=== PATIENT | male | born 1965 | race Caucasian/White ===

== ENCOUNTER 2018-09-21 06:04 | Inpatient (IN) | payer MEDICARE, MEDICAID ==
[2018-09-18 10:14] LABS: Urine WBC None Seen /hpf (0 - 3)
[2018-09-18 10:22] LABS: Basophils # (auto) 0 uL; Basophils % (auto) 0.5 % (0.0-2.0); Eosinophils # (auto) 0.1 uL; Eosinophils % (auto) 1.9 % (0.0-7.0); Lymphocytes # (auto) 2.3 uL; Lymphocytes % (auto) 51.4 % (10.0-50.0); Mean Corpuscular Hemoglobin 30.1 pg (28.0-32.0); Mean Corpuscular Hgb Conc. 33.3 g/dL (32.0-36.0); Mean Corpuscular Volume 90.4 fL (80.0-100.0); Monocytes # (auto) 0.2 uL; Monocytes % (auto) 5.3 % (0.0-12.0); Neutrophils # (auto) 1.9 uL; Neutrophils % (auto) 40.9 % (37.0-80.0); Nucleated Red Blood Cells % 0.1 %; Platelet Count (auto) 227 10^3/uL (140-450); Red Blood Cells 4.65 10^6/uL (4.5-5.90); Red Cell Distribution Width 14.2 % (11.8-14.3); White Blood Cell 4.5 10^3/uL (4.4-10.8)
[2018-09-18 10:25] LABS: Urine Bacteria NONE SEEN /hpf (None Seen); Urine Blood Negative /uL (Negative); Urine Specific Gravity 1.005 (1.001-1.035)
[2018-09-18 10:39] LABS: INR 0.95 (0.9-1.15); Partial Thromboplastin Time 25.7 sec (23.64-32.05)
[2018-09-18 11:09] LABS: Calcium 9.2 mg/dL (8.5-10.1); Potassium 4.7 mmol/L (3.5-5.1)
[2018-09-18 11:14] LABS: Albumin 3.9 g/dL (3.4-5.0); Bilirubin, Total 0.4 mg/dL (0.2-1.0); Total Protein 7.7 g/dL (6.4-8.2)
[~2018-09-21] VITALS: Ht 177.8 cm; Wt 121.5 kg
[~2018-09-21 06:04] MED LIST: AMIT50TA3 PO; CARV3.1240 PO; FENO5TAB PO; GABA100C9 PO; IBUP800T24 PO; LISI40TA PO; METF-372 PO; OXY20CRT PO; OXYC-629 PO; PRAV20TA3 PO; SERT-160 PO
[2018-09-21] MEDS ORDERED: TRANEXAMIC ACID 10 ML ONE (07:16)
[2018-09-21] MEDS ORDERED: BUPIVACAINE W/ EPINEPH 0.25% INJ 50ML MDV ONE (07:16)
[2018-09-21] MEDS ORDERED: ceFAZolin 1GM VL ONE (07:16)
[2018-09-21] MEDS ORDERED: ceFAZolin 1GM/50ML 100 ML IV ONE (07:19)
[2018-09-21] MEDS ORDERED: KETOROLAC TROMETH 60MG/2ML VIAL ONE (07:20)
[2018-09-21] MEDS ORDERED: VANCOMYCIN HCL 1000 MG VL ONE (07:20)
[2018-09-21] MEDS ORDERED: MORPHINE SULF(PF) 0.5MG/ML 10ML VIAL ONE (07:27)
[2018-09-21] MEDS ORDERED: fentaNYL CITRATE 100 MCG/2 ML VL ONE ×4 (07:28→12:27)
[2018-09-21] MEDS ORDERED: MIDAZOLAM HCL 1MG/1ML-2 ML VIAL ONE (07:28)
[2018-09-21] MEDS ORDERED: PROPOFOL 10 MG/ML 20 ML IV ONE (07:29)
[2018-09-21] MEDS ORDERED: SUCCINYLCHOLINE CHLORIDE 20 MG/ML 10ML VIAL IV ONE (07:48)
[2018-09-21] MEDS ORDERED: GLYCOPYRROLATE 0.2 MG/ML 1ML VIAL IV ONE (08:02)
[2018-09-21] MEDS ORDERED: HYDROmorphone HCL 2 MG/ML VL ONE ×2 (08:44→12:49)
[2018-09-21] MEDS ORDERED: ROCURONIUM 10MG/ML 10ML VIAL IV ONE (09:07)
[2018-09-21] MEDS: SERTRALINE HCL 50 MG TAB PO SCH (10:00)
[2018-09-21] MEDS: LISINOPRIL 20 MG TAB PO SCH (10:00)
[2018-09-21] MEDS: LACTATED RINGER'S 1,000 ML IV SCH ×2 (11:57→21:57)
[2018-09-21] MEDS ORDERED: ONDANSETRON HCL 4 MG/2 ML VIAL IV PRN (12:00)
[2018-09-21] MEDS ORDERED: MORPHINE SULF INJ 2 MG/ML SYRINGE 1ML IV PRN (12:00)
[2018-09-21] MEDS ORDERED: NITROGLYCERIN 0.4 MG SL TAB SL PRN (12:00)
[2018-09-21] MEDS ORDERED: BISACODYL 5 MG EC TAB PO PRN (12:00)
[2018-09-21] MEDS ORDERED: DEXTROSE (50%) 50ML SYRG IV PRN (12:15)
[2018-09-21] MEDS ORDERED: fentaNYL CITRATE 100 MCG/2 ML VL IM ONE (12:50)
[2018-09-21] MEDS ORDERED: ONDANSETRON HCL 4 MG/2 ML VIAL IM ONE (12:50)
[2018-09-21] MEDS: HYDROmorphone HCL 2 MG/ML VL IV PRN ×6 (12:51→23:15)
[2018-09-21] MEDS ORDERED: fentaNYL CITRATE 100 MCG/2 ML VL IV PRN (13:45)
--- NOTE | 2018-09-21 14:32 | NUR ---
MS admit from OR ROBIN HERBERT admitted to tele/MS after SBAR received. Patient oriented to Mady Bailey, primary RN, unit, room, bed, and unit policies regarding patient care and visiting hours. Patient weighed by bedscale and encouraged to call if they need something. All questions and concerns addressed, patient verbalized understanding. Note:
[2018-09-21] MEDS ORDERED: ACETAMINOPHEN IV 100 ML IV ONE (14:44)
[2018-09-21] MEDS ORDERED: ACETAMINOPHEN IV 1000 MG/100ML (10MG/ML) IV ONE (14:52)
[2018-09-21] MEDS: OXYCODONE W/ ACETAMINOPHEN 5/325MG TABLET PO PRN (15:49)
[2018-09-21 16:00] VITALS: BP 150/72
[2018-09-21] MEDS: SODIUM CHLOR 0.9% PF (SALINE LOCK) 10ML VIAL/SYR IV SCH ×2 (16:43→22:18)
[2018-09-21] MEDS: ceFAZolin 1GM 2 GM in D5W 5% 100 ML IV SCH ×2 (16:50→22:24)
[2018-09-21] MEDS: GABAPENTIN 100 MG CAP PO SCH ×2 (16:50→22:19)
[2018-09-21 17:00] VITALS: BP 135/69
[2018-09-21] MEDS: InsuLIN REG 1unit/0.01ml Soln (100units/ml) SC SCH ×2 (17:20→22:20)
[2018-09-21] MEDS: ACCU-CHEK COMFORT CURVE STRIP VI SCH ×2 (17:21→21:28)
[2018-09-21] MEDS: AMITRIPTYLINE HCL 25 MG TAB PO SCH (17:21)
[2018-09-21] MEDS: metFORMIN HYDROCHLORIDE 500 MG TAB PO SCH (17:21)
--- NOTE | 2018-09-21 19:57 | NUR ---
Opening Note Assumed pt car from day shift nurse. Pt is a/ox4 with no s/s of distress or SOB. PT is currently laying in bed with the CPM machine on stating he does have mild pain, 5/10. Left leg is supported with CMP and still has current dressing on. Discussed the available pain medication, pt verbalized understanding. Discussed POC with pt,. pt verbalized understanding. Safety measures maintained with side rails up, bed in lowest position and call light within reach. Will continue to monitor for changes q1hr and prn.
[2018-09-21 22:00] VITALS: BP 121/62
[2018-09-21] MEDS ORDERED: oxyCODONE ER 10 MG TAB PO SCH (22:00)
[2018-09-21] MEDS: DOCUSATE SOD 100 MG CAP PO SCH (22:18)
[2018-09-21] MEDS: CARVEDILOL 3.125 MG TAB PO SCH (22:19)
[2018-09-21] MEDS: oxyCODONE ER 20 MG TAB PO SCH (22:20)
--- NOTE | 2018-09-22 00:04 | NUR ---
Pt Pain Pt reports pain 10/10 despite oxycotin as well as dilaudid administration. Provided education regarding the time it takes for the medication to work. Provided no pharm techniques such as repositioning and hot packs to back. Pt states that he is still in pain.
[2018-09-22] MEDS: HYDROmorphone HCL 2 MG/ML VL IV PRN ×9 (02:17→22:35)
[2018-09-22] MEDS: OXYCODONE W/ ACETAMINOPHEN 5/325MG TABLET PO PRN ×5 (03:10→23:15)
[2018-09-22 03:15] VITALS: BP 121/62
[2018-09-22 05:00] VITALS: BP 123/60
--- NOTE | 2018-09-22 05:10 | NUR ---
Slightly Elevated Temperature CLINICAL TRAINING COORDINATOR reported in 0500 vitals that the pt's temp is 100.0 F. At this time the pt is asymptomatic. Will continue to monitor for changes and reassess.
[2018-09-22] MEDS: GABAPENTIN 100 MG CAP PO SCH ×3 (06:30→21:36)
[2018-09-22] MEDS: SODIUM CHLOR 0.9% PF (SALINE LOCK) 10ML VIAL/SYR IV SCH ×3 (06:30→21:35)
[2018-09-22] MEDS: ACCU-CHEK COMFORT CURVE STRIP VI SCH ×4 (06:30→20:31)
[2018-09-22] MEDS: ceFAZolin 1GM 2 GM in D5W 5% 100 ML IV SCH (06:30)
[2018-09-22 06:40] LABS: Hemoglobin 11.2 g/dL (13.5-17.5)
[2018-09-22] MEDS: metFORMIN HYDROCHLORIDE 500 MG TAB PO SCH ×2 (06:41→18:00)
[2018-09-22] MEDS: InsuLIN REG 1unit/0.01ml Soln (100units/ml) SC SCH ×4 (06:42→21:37)
[2018-09-22 06:55] LABS: Albumin 3.1 g/dL (3.4-5.0); BUN/Creatinine Ratio 15.6; Calcium 8.3 mg/dL (8.5-10.1); Potassium 3.9 mmol/L (3.5-5.1)
[2018-09-22 06:57] LABS: Bilirubin, Total 0.8 mg/dL (0.2-1.0); Total Protein 6.2 g/dL (6.4-8.2)
--- NOTE | 2018-09-22 07:50 | NUR ---
FOUND PT ON RA WITH OXYGEN SATURATION OF 88%. PT WAS PLACED BACK ON OXYGEN 2L/VIA NC, OXYGEN SATURATION WENT UP TP 95%. HR 89BPM, RR20. BS ARE CLEAR TO AUSCULTATION. NO SOB OR ANY OTHER RESPIRATORY DISTRESS NOTED. PT WAS INFORMED ABOUT CPAP ORDER TO USE AT NIGHT. PT STATED HE "WILL NOT USE IT." HE SAYS HE DOES HAVE A CPAP AT HOME AND THAT HE "CANNOT USE IT." PT STATES SOMEONE EXPLAINED TO HIM ABOUT CPAP, LAST NIGHT. PT IS REFUSING CPAP.
[2018-09-22] MEDS: LACTATED RINGER'S 1,000 ML IV SCH ×2 (07:57→17:31)
[2018-09-22 09:00] VITALS: BP 137/65
[2018-09-22] MEDS: PRAVASTATIN SODIUM 20 MG TAB PO SCH (09:14)
[2018-09-22] MEDS: DOCUSATE SOD 100 MG CAP PO SCH ×2 (09:18→21:36)
[2018-09-22] MEDS: CARVEDILOL 3.125 MG TAB PO SCH ×2 (09:20→21:36)
[2018-09-22] MEDS: oxyCODONE ER 20 MG TAB PO SCH (09:21)
[2018-09-22] MEDS: LISINOPRIL 20 MG TAB PO SCH (09:22)
[2018-09-22] MEDS: SERTRALINE HCL 50 MG TAB PO SCH (09:23)
[2018-09-22] MEDS: ENOXAPARIN SOD 40 MG/0.4 ML SYRINGE SC SCH (09:25)
[2018-09-22] MEDS ORDERED: PANTOPRAZOLE 40 MG TAB PO ONE (11:00)
[2018-09-22] MEDS: PANTOPRAZOLE 40 MG TAB PO SCH ×2 (11:12→21:37)
[2018-09-22 13:00] VITALS: BP 140/69
[2018-09-22] MEDS ORDERED: LACTULOSE 20Gm/30ML SOLN PO PRN (14:15)
--- NOTE | 2018-09-22 16:00 | NUR ---
PT REFUSED P.T. X 2.
[2018-09-22 17:00] VITALS: BP 123/67
[2018-09-22] MEDS: AMITRIPTYLINE HCL 25 MG TAB PO SCH (17:29)
--- NOTE | 2018-09-22 19:39 | NUR ---
Opening Note Assumed pt care from day shift nurse. Pt is a/ox4 with no s/s of distress. Pt is currently laying in bed with c/o pain 9/10 located to left knee. Discussed available pain medications; pt verbalized understanding. Discussed POC with pt, pt verbalized understanding. Dressing to L knee is still intact, pedal pulses are strong and regular bilaterally. Safety measures maintained with call light within reach, bed in lowest position and side rails up. Will continue to monitor for changes q1hr and prn.
[2018-09-22] MEDS: oxyCODONE ER 10 MG TAB PO SCH (21:37)
[2018-09-22] MEDS: MORPHINE SULF 30 mg ER tab PO SCH (21:37)
[2018-09-22 22:00] VITALS: BP 134/62
[2018-09-22] MEDS ORDERED: MORPHINE SULF 15mg ER tab PO SCH (22:00)
[2018-09-23] MEDS: HYDROmorphone HCL 2 MG/ML VL IV PRN ×4 (00:35→06:31)
[2018-09-23] MEDS: LACTATED RINGER'S 1,000 ML IV SCH ×3 (02:58→23:57)
[2018-09-23] MEDS: OXYCODONE W/ ACETAMINOPHEN 5/325MG TABLET PO PRN ×3 (04:34→17:35)
[2018-09-23 05:00] VITALS: BP 122/55
--- NOTE | 2018-09-23 05:41 | NUR ---
Pain Update Pt reports 10/10 pain located in L knee despite administration of pain medication as well as break through pain medication. L pedal pulse is strong and regular, no additional swelling noted. Offered non-pharm techniques and distraction techniques; no relief with implementing.
[2018-09-23] MEDS: GABAPENTIN 100 MG CAP PO SCH ×3 (05:49→22:37)
[2018-09-23] MEDS: SODIUM CHLOR 0.9% PF (SALINE LOCK) 10ML VIAL/SYR IV SCH ×3 (05:49→22:00)
[2018-09-23] MEDS: InsuLIN REG 1unit/0.01ml Soln (100units/ml) SC SCH ×4 (06:27→22:00)
[2018-09-23] MEDS: ACCU-CHEK COMFORT CURVE STRIP VI SCH ×4 (06:27→22:00)
[2018-09-23] MEDS: metFORMIN HYDROCHLORIDE 500 MG TAB PO SCH ×2 (06:31→17:34)
--- NOTE | 2018-09-23 06:40 | NUR ---
DR Tong at Bedside
[2018-09-23 07:03] LABS: Hematocrit 28.2 % (41.0-53.0); Hemoglobin 9.7 g/dL (13.5-17.5)
[2018-09-23 08:00] VITALS: BP 111/56
--- NOTE | 2018-09-23 08:20 | NUR ---
PT RESTING IN BED, PT REPORTS 8/10 PAIN IN LEFT LEG. LEFT KNEE EDEMA NOTED, PLUS 2 NON PITTING. NO ERYTHEMA NOTED, MINIMAL DRAINAGE NOTED ON LEFT KNEE BANDAGE. BANDAGE CLEAN DRY AND INTACT. PEDAL PULSES PLUS 3 BILATERALLY. APPROX 350 MLS CLEAR DILSHAD URINE NOTED IN URINAL, WILL CONTINUE TO MONITOR. PT ENCOURAGED TO USE CALL LIGHT PRN. PT REFUSING CPM AT THIS TIME, BUT REPORTS HE WILL USE IT "LATER."
[2018-09-23] MEDS: LISINOPRIL 20 MG TAB PO SCH (09:52)
[2018-09-23] MEDS: CARVEDILOL 3.125 MG TAB PO SCH ×2 (09:52→22:38)
[2018-09-23] MEDS: PRAVASTATIN SODIUM 20 MG TAB PO SCH (09:53)
[2018-09-23] MEDS: DOCUSATE SOD 100 MG CAP PO SCH ×2 (09:53→22:36)
[2018-09-23] MEDS: SERTRALINE HCL 50 MG TAB PO SCH (09:54)
[2018-09-23] MEDS: MORPHINE SULF 30 mg ER tab PO SCH ×2 (09:54→22:37)
[2018-09-23] MEDS: oxyCODONE ER 10 MG TAB PO SCH (09:54)
[2018-09-23] MEDS: PANTOPRAZOLE 40 MG TAB PO SCH ×2 (09:55→22:37)
[2018-09-23] MEDS: ENOXAPARIN SOD 40 MG/0.4 ML SYRINGE SC SCH (09:55)
--- NOTE | 2018-09-23 10:49 | NUR ---
PT REPORTS HE IS STILL IN 8/10 PAIN IN KNEE. SCHEDULED ORAMORPH AND OXYCONTIN ALREADY GIVEN. OFFERED PT ICE PACK, PT REFUSED. CPM FOR HOME DELIVERED TO PT BEDSIDE.
[2018-09-23 12:00] VITALS: BP 122/57
--- NOTE | 2018-09-23 12:15 | NUR ---
PT REPORTS HE IS STILL IN 09/26 PAIN. OFFERED PATIENT TO ELEVATE KNEE ON PILLOWS, PT REFUSED. CALLED AND LEFT MESSAGE WITH DR CARRASCO'S ANSWERING SERVICE, AWAITING CALL BACK. Addendum: 09/23/18 at 1219 by ELVIS MANCILLA RN PT ALREADY GIVEN ORAMORPH AND OXYCONTIN, WANT TO CLARIFY WITH MD MCGOWAN TO GIVE DILAUDID Q 2 HRS.
--- NOTE | 2018-09-23 13:25 | NUR ---
GAVE PATIENT PRN CATHI, PT REPORTS, "IT PROBABLY WON'T WORK!" CALLED DR CARRASCO AGAIN, AND LEFT MESSAGE WITH TICKET CHOPPER ASSEMBLER.
--- NOTE | 2018-09-23 14:10 | NUR ---
ASKED FRAMING SPECIALIST TO CALL IN PAIN MANAGEMENT CONSULT.
--- NOTE | 2018-09-23 15:33 | NUR ---
CHANGED PATIENT DRESSING. MINIMAL SEROSANGUINEOUS DRAINAGE NOTED. INCISION SPAYED WITH WOUND CLEANSER AND DABBED DRY WITH 4X4 GAUZE. NEW BORDERED GAUZE APPLIED. RECEIVED IN REPORT PT TO HAVE DRESSING CHANGED Q MORNING AND PRN. Addendum: 09/23/18 at 1541 by ELVIS MANCILLA RN INCISION IS FREE OF ERYTHEMA AND SWELLING, HOMER IN TACT.
[2018-09-23 17:09] VITALS: BP 124/59
--- NOTE | 2018-09-23 17:30 | NUR ---
PT REPORTS HE IS NOT EATING VERY WELL. BS AT 1700 104, HOLDING METFORMIN.
[2018-09-23] MEDS: AMITRIPTYLINE HCL 25 MG TAB PO SCH (17:34)
--- NOTE | 2018-09-23 18:07 | NUR ---
DR CARRASCO SAW PATIENT AND DISCUSSED POC. NOTIFIED MD PT WANTS DILAUDID AND IS ALREADY RECEIVING ORAMORPH AND OXYCONTIN AND PERCOCET. NEW ORDERS FOR ONE TIME DOSE OF DILAUDID.PT AWARE WILL CONTINUE TO MONITOR. Addendum: 09/23/18 at 1904 by ELVIS MANCILLA RN MD REPORTS TO ALSO CONSULT DR HARDY FOR PAIN MANAGEMENT..
[2018-09-23] MEDS ORDERED: HYDROmorphone HCL 2 MG/ML VL IV ONE (18:15)
[2018-09-23] MEDS ORDERED: HYDROmorphone HCL 2 MG TAB PO PRN (20:15)
--- NOTE | 2018-09-23 20:15 | NUR ---
MD Spoke to MD at station, pain management consult completed
[2018-09-23 21:36] VITALS: BP 124/61
[2018-09-23] MEDS: ACETAMINOPHEN 325 MG TAB PO PRN (22:35)
--- NOTE | 2018-09-23 22:35 | NUR ---
Temp reassessed 98.8
[2018-09-24] MEDS: HYDROmorphone HCL 2 MG/ML VL IV PRN ×6 (00:21→22:21)
--- NOTE | 2018-09-24 00:21 | NUR ---
Pain Management Pt medicated for c/o 10/27 left knee pain. Will continue to monitor. Call light within reach
--- NOTE | 2018-09-24 04:27 | NUR ---
Pain Management Pt medicated for c/o 9/10 pain, will continue to monitor relief.
[2018-09-24 04:30] VITALS: BP 117/55
[2018-09-24] MEDS: GABAPENTIN 100 MG CAP PO SCH ×3 (06:10→22:21)
[2018-09-24] MEDS: SODIUM CHLOR 0.9% PF (SALINE LOCK) 10ML VIAL/SYR IV SCH ×3 (06:10→22:28)
[2018-09-24] MEDS: ACCU-CHEK COMFORT CURVE STRIP VI SCH ×4 (06:10→22:28)
[2018-09-24] MEDS: metFORMIN HYDROCHLORIDE 500 MG TAB PO SCH ×2 (06:11→17:42)
[2018-09-24] MEDS: InsuLIN REG 1unit/0.01ml Soln (100units/ml) SC SCH ×4 (06:12→22:00)
[2018-09-24 06:26] LABS: Hematocrit 26.4 % (41.0-53.0)
--- NOTE | 2018-09-24 07:30 | NUR ---
Endorsed care to [facility]
--- NOTE | 2018-09-24 07:33 | NUR ---
OPENING NOTE Assumed care of patient from NOC [employer]. Patient awake and alert with no S/S of distress/SOB. C/O left knee pain 9/10 on adult pain scale, will administer prn pain medication as ordered. Instructed on POC and to call for assist PRN, verbalized understanding. Dressing to left knee clean/dry and intact. Advised patient to wear CPM as ordered, patient refused at this time. Will continue to monitor for changes Q1hr and PRN.
[2018-09-24 09:00] VITALS: BP 107/63
[2018-09-24] MEDS: LISINOPRIL 20 MG TAB PO SCH (10:46)
[2018-09-24] MEDS: DOCUSATE SOD 100 MG CAP PO SCH ×2 (10:46→22:19)
[2018-09-24] MEDS: PRAVASTATIN SODIUM 20 MG TAB PO SCH (10:46)
[2018-09-24] MEDS: SERTRALINE HCL 50 MG TAB PO SCH (10:47)
[2018-09-24] MEDS: CARVEDILOL 3.125 MG TAB PO SCH ×2 (10:48→22:20)
[2018-09-24] MEDS: MORPHINE SULF 30 mg ER tab PO SCH ×2 (10:49→23:40)
[2018-09-24] MEDS: PANTOPRAZOLE 40 MG TAB PO SCH ×2 (10:49→22:19)
[2018-09-24] MEDS: LACTATED RINGER'S 1,000 ML IV SCH ×2 (10:50→19:57)
[2018-09-24] MEDS: ENOXAPARIN SOD 40 MG/0.4 ML SYRINGE SC SCH (10:51)
--- NOTE | 2018-09-24 11:32 | NUR ---
CPM Educated patient on importance of equipment use, continues to refuse to wear CPM machine.
[2018-09-24 13:00] VITALS: BP 121/63
--- NOTE | 2018-09-24 14:26 | NUR ---
CPM Educated patient on importance of equipment use, continues to refuse to wear CPM machine.
--- NOTE | 2018-09-24 16:19 | NUR ---
assessment Patient is a 53 year old male who is alert and oriented. Prior to admission patient lived home with family and functioned with assistance. Patient has been admitted for knee replacement. Patient has a CPM, fww, cane and a wheelchair for home use. Patient will need an order for home health for PT on discharge. Patient has informed me he wants to use [facility]. [facility] has been notified. Patient has an [facility] caregiver. Patient has no advanced directive or POA. Patient verbalized understanding and agreed to discharge plan home on discharge. Addendum: 09/24/18 at 1623 by Opal MENG Amended: Links added.
[2018-09-24 17:00] VITALS: BP 128/66
[2018-09-24] MEDS: AMITRIPTYLINE HCL 25 MG TAB PO SCH (17:42)
--- NOTE | 2018-09-24 18:15 | NUR ---
CPM Educated patient on importance of equipment use, continues to refuse to wear CPM machine. States he will try to use it later tonight.
--- NOTE | 2018-09-24 19:20 | NUR ---
Opening Shift Note Assumed care of patient, awake and alert. No S/S of distress/SOB or pain. Instructed on POC and to call for assist PRN. Patient refusing CPM at this time. Bed in lowest locked position, call light within reach, side rails up x2. Will continue to monitor for changes Q1hr and PRN.
[2018-09-24 22:00] VITALS: BP 138/64
[2018-09-24] MEDS: ACETAMINOPHEN 325 MG TAB PO PRN (22:19)
--- NOTE | 2018-09-24 23:00 | NUR ---
Temperature recheck at 98.5. Continue care.
[2018-09-25] MEDS: HYDROmorphone HCL 2 MG/ML VL IV PRN ×3 (04:09→13:34)
[2018-09-25 05:00] VITALS: BP 135/72
[2018-09-25] MEDS: LACTATED RINGER'S 1,000 ML IV SCH ×2 (05:57→15:57)
[2018-09-25] MEDS: metFORMIN HYDROCHLORIDE 500 MG TAB PO SCH (06:21)
[2018-09-25] MEDS: InsuLIN REG 1unit/0.01ml Soln (100units/ml) SC SCH ×3 (06:22→17:00)
[2018-09-25] MEDS: GABAPENTIN 100 MG CAP PO SCH ×2 (06:22→13:33)
[2018-09-25] MEDS: SODIUM CHLOR 0.9% PF (SALINE LOCK) 10ML VIAL/SYR IV SCH ×2 (06:22→13:33)
[2018-09-25] MEDS: ACCU-CHEK COMFORT CURVE STRIP VI SCH ×3 (06:22→17:00)
--- NOTE | 2018-09-25 07:25 | NUR ---
OPENING NOTE Assumed care of patient from NOC RN, Pam. Patient awake and alert with no S/S of distress/SOB. C/O left knee pain 9/10 on adult pain scale, will administer prn pain medication as ordered. Instructed on POC and to call for assist PRN, verbalized understanding. Dressing to left knee clean/dry and intact. Advised patient to wear CPM as ordered, patient refused at this time. Will continue to monitor for changes Q1hr and PRN.
--- NOTE | 2018-09-25 08:05 | NUR ---
AT BEDSIDE Dr. Tong at patient's bedside. Aware of patient's refusal to wear CPM machine.
[2018-09-25 09:00] VITALS: BP 126/62
[2018-09-25] MEDS: DOCUSATE SOD 100 MG CAP PO SCH (09:56)
[2018-09-25] MEDS: LISINOPRIL 20 MG TAB PO SCH (09:56)
[2018-09-25] MEDS: PANTOPRAZOLE 40 MG TAB PO SCH (09:56)
[2018-09-25] MEDS: PRAVASTATIN SODIUM 20 MG TAB PO SCH (09:57)
[2018-09-25] MEDS: CARVEDILOL 3.125 MG TAB PO SCH (09:57)
[2018-09-25] MEDS: SERTRALINE HCL 50 MG TAB PO SCH (09:58)
[2018-09-25] MEDS: MORPHINE SULF 30 mg ER tab PO SCH (09:58)
[2018-09-25] MEDS: ENOXAPARIN SOD 40 MG/0.4 ML SYRINGE SC SCH (09:59)
--- NOTE | 2018-09-25 10:17 | NUR ---
Per SS consult for home health for physical therapy. Information and choice letter was given to Pt. Per Pt requested [facility] home health. Pt verbalize and agrees d/c plan. Contacted [facility] Ph: ) Fax: ( [phone]) faxed medical records. Erasmo Irwin from [facility] Pt has been accepted and service to start within 48hrs upon d/c day. Informed Pt at bed side and RICHARDSON Barker. Addendum: 09/25/18 at 1020 by URVASHI GOODWIN Amended: Links added.
--- NOTE | 2018-09-25 10:42 | NUR ---
CPM Educated patient on importance of equipment use, continues to refuse to wear CPM machine.
[2018-09-25 13:00] VITALS: BP 122/60
--- NOTE | 2018-09-25 14:06 | NUR ---
CPM Educated patient on importance of equipment use, continues to refuse to wear CPM machine. Patient states he is being discharged so he will use it at home where it will "be more comfortable".
--- NOTE | 2018-09-25 16:55 | NUR ---
DISCHARGE Discharge instructions given as ordered. Encouraged to follow up with PMD and Dr. Tong as instructed. All questions and concerns addressed. Patient verbalized understanding. Medication reconciliation form completed and copy given to patient. IV removed with catheter intact and pressure dressing applied. Patient taken to vehicle via wheelchair with all personal belongings, accompanied by staff and family member. No distress noted at time of departure.
[2018-09-25 17:00] VITALS: BP 127/64
== END 2018-09-25 16:45 | disposition home health service (06) | DRG 470 ==
LOC: SUR 06:04 → EDSEX 07:00 → CENTRAL 15:31
PROVIDERS: ADMIT Orthopaedic Surgery Adult Reconstructive Orthopaedic Surgery; ATTEND Orthopaedic Surgery Adult Reconstructive Orthopaedic Surgery
PROC: 0QPH04Z Removal of Internal Fixation Device from Left Tibia, Open Approach (ICD-10-PCS; 2018-09-21)
PROC: 0SRD0J9 Replacement of Left Knee Joint with Synthetic Substitute, Cemented, Open Approach (ICD-10-PCS; principal; 2018-09-21 08:02)
DX: M17.32 Unilateral post-traumatic osteoarthritis, left knee (principal); S82.142A Displaced bicondylar fracture of left tibia, initial encounter for closed fracture; E11.42 Type 2 diabetes mellitus with diabetic polyneuropathy; E66.9 Obesity, unspecified; E78.00 Pure hypercholesterolemia, unspecified; M54.5 Low back pain; F11.90 Opioid use, unspecified, uncomplicated; G89.29 Other chronic pain; I10 Essential (primary) hypertension; G89.18 Other acute postprocedural pain; M19.90 Unspecified osteoarthritis, unspecified site; Y83.8 Other surgical procedures as the cause of abnormal reaction of the patient, or of later complication, without mention of misadventure at the time of the procedure; G47.33 Obstructive sleep apnea (adult) (pediatric); J44.9 Chronic obstructive pulmonary disease, unspecified; E78.5 Hyperlipidemia, unspecified; Z96.652 Presence of left artificial knee joint; Z68.38 Body mass index [BMI] 38.0-38.9, adult; Z79.899 Other long term (current) drug therapy; Y92.89 Other specified places as the place of occurrence of the external cause
CPT/HCPCS: 36415; 73562; 80053; 81001; 82962; 85014; 85018; 85025; 85610; 85730; 86850; 86900; 86901; 97110; 97116; 97530; G0378; J0131; J0330; J0690; J1815; J1885; J2250; J2704; J7060